=== PATIENT | female | born 1965 | race Two or more races ===

== ENCOUNTER → 2016-11-17 | Outpatient (CLI) | payer OTHER, MEDICAID | LOC: FIMAGING 11:04 | DX: Z12.31 Encounter for screening mammogram for malignant neoplasm of breast (principal) | CPT/HCPCS: G0202 ==

== ENCOUNTER → 2017-12-07 | Outpatient (CLI) | payer OTHER, MEDICAID | LOC: FIMAGING 11:35 | PROVIDERS: ATTEND Physician Assistant | DX: Z12.31 Encounter for screening mammogram for malignant neoplasm of breast (principal) ==

== ENCOUNTER → 2018-12-08 | Outpatient (CLI) | payer OTHER, MEDICAID | LOC: FIMAGING 09:49 | PROVIDERS: ATTEND Physician Assistant | DX: Z12.31 Encounter for screening mammogram for malignant neoplasm of breast (principal) ==

== ENCOUNTER → 2019-01-18 | Outpatient (CLI) | payer OTHER, MEDICAID | LOC: FIMAGING 09:58 | PROVIDERS: ATTEND Physician Assistant | DX: M25.552 Pain in left hip (principal); M47.898 Other spondylosis, sacral and sacrococcygeal region ==